=== PATIENT | female | born 1965 | race Native Hawaiian/Other Pacific Islander ===

== ENCOUNTER 2017-04-24 08:22 | Observation (INO) | payer OTHER ==
[~2017-04-24] VITALS: Ht 170.2 cm; Wt 63.1 kg
[2017-04-24 10:01] VITALS: BP 124/62; TEMP 98.4; Ht 170.2 cm; Wt 63.1 kg
[2017-04-24 10:16] LABS: PLATELET COUNT 302 K/uL (152-353)
[2017-04-24 10:26] LABS: POTASSIUM 3.8 mmol/L (3.6-5.2)
[2017-04-24 12:00] VITALS: BP 115/56; TEMP 97.7
[2017-04-24] MEDS ORDERED: OMEP20CA PO (12:47)
[2017-04-24 16:00] VITALS: BP 111/47; BP 168/63; TEMP 97.8
[2017-04-24 20:00] VITALS: BP 131/52; TEMP 97.6
[2017-04-25] VITALS: BP 115/50; TEMP 97.7
[2017-04-25 04:00] VITALS: BP 111/49; TEMP 97.8
[2017-04-25 05:03] LABS: PLATELET COUNT 264 K/uL (152-353)
[2017-04-25 05:29] LABS: POTASSIUM 4.1 mmol/L (3.6-5.2)
[2017-04-25 08:00] VITALS: BP 108/49; TEMP 97.8
== END 2017-04-25 10:50 | disposition home or self-care (01) ==
LOC: MED/SURG 08:22
DX: J40 Bronchitis, not specified as acute or chronic (principal)
CPT/HCPCS: 36591; 80053; 83735; 85027; 86615; 93005; 94640; 94664; 94760; 96365; 96366; 96367; 99220; G0378; G0379; J2930

== ENCOUNTER 2018-10-15 09:10 | Outpatient (CLI) | payer OTHER ==
[~2018-10-15 09:10] MED LIST: OMEP20CA PO
== END 2018-10-15 20:10 | disposition home or self-care (01) ==
LOC: LABW 09:10
DX: R21 Rash and other nonspecific skin eruption (principal); R79.89 Other specified abnormal findings of blood chemistry; R53.82 Chronic fatigue, unspecified
CPT/HCPCS: 36415; 80074; 81000; 82043; 82330; 82552; 82570; 82746; 83516; 84155; 84550; 86141; 86160; 86225; 86255

== ENCOUNTER 2020-02-09 10:00 | Outpatient (CLI) | payer OTHER | END 2020-02-09 19:40 | disposition home or self-care (01) | LOC: RAD 10:00 | DX: R05 Cough (principal) ==

== ENCOUNTER 2022-02-19 10:17 | Outpatient (CLI) | payer OTHER | END 2022-02-19 19:50 | disposition home or self-care (01) | LOC: RAD 10:17 | PROVIDERS: ATTEND Registered Nurse | DX: M54.41 Lumbago with sciatica, right side (principal) ==

== ENCOUNTER 2022-06-12 11:15 | Outpatient (CLI) | payer OTHER | END 2022-06-12 19:04 | disposition home or self-care (01) | LOC: RAD 11:15 | PROVIDERS: ATTEND Registered Nurse | DX: J20.8 Acute bronchitis due to other specified organisms (principal) ==